=== PATIENT | female | born 1950 | race Caucasian/White ===

== ENCOUNTER 2016-12-14 10:50 | Inpatient (IN) | payer MEDICARE, BC ==
[2016-12-14] MEDS ORDERED: Ondansetron 4 MG/2 ML SDV IV PRN (17:11)
[2016-12-14] MEDS ORDERED: predniSONE 5 MG Tab PO PRN (17:14)
[2016-12-14] MEDS ORDERED: Albuterol/Ipratropium 3.0-0.5 MG/3 ML Neb Soln NEB PRN (17:14)
[2016-12-14] MEDS ORDERED: hydrOXYzine HCl 25 MG Tab PO PRN (17:14)
[2016-12-14] MEDS ORDERED: Lactated Ringers 1,000 ML IV SCH (17:15)
[2016-12-14] MEDS: Pantoprazole 40 MG Vial IVPUSH SCH (17:46)
[2016-12-14] MEDS: Acetaminophen 325 MG Tab PO PRN (17:48)
[2016-12-14] MEDS: Enoxaparin 40 MG/0.4 ML Syringe SUBCUT SCH (18:09)
[2016-12-14] MEDS: Levofloxacin/Dextrose 5%-Water 500 MG in Premix Bag 1 BAG IV SCH (18:36)
[2016-12-14] MEDS: PREDNISOLONE ACETATE 1% EYEBOTH SCH (19:43)
[2016-12-14] MEDS ORDERED: metroNIDAZOLE/Normal Saline 500 MG in Premix Bag 1 BAG IV SCH (20:00)
[2016-12-14] MEDS ORDERED: Theophylline 200 MG Tab.ER PO SCH (20:00)
[2016-12-14] MEDS ORDERED: metFORMIN 500 MG Tab PO SCH (20:00)
[2016-12-14] MEDS ORDERED: Fluticasone Propionate Nasal Spray 16 GM Bottle NASBOTH SCH (20:00)
[2016-12-14] MEDS: OLOPATADINE 0.2% EYEBOTH SCH (20:00)
[2016-12-14] MEDS: Lactated Ringers 1,000 ML IV SCH (21:53)
[2016-12-14] MEDS: Temazepam 15 MG Cap PO PRN (21:55)
[2016-12-14] MEDS: Ibuprofen 200 MG Tab PO PRN (21:55)
[2016-12-15] MEDS: Acetaminophen 325 MG Tab PO PRN ×2 (03:24→23:52)
[2016-12-15] MEDS: Lactated Ringers 1,000 ML IV SCH ×2 (06:02→15:39)
[2016-12-15] MEDS ORDERED: HYDROXYZINE HCL 25 MG PO PRN (07:23)
[2016-12-15] MEDS ORDERED: Loratadine 10 MG Tab PO SCH (08:00)
[2016-12-15] MEDS ORDERED: metroNIDAZOLE/Normal Saline 500 MG in Premix Bag 1 BAG IV SCH (08:00)
[2016-12-15] MEDS ORDERED: THEOPHYLLINE 400 MG PO SCH (08:00)
[2016-12-15] MEDS: OLOPATADINE 0.2% EYEBOTH SCH ×2 (08:23→19:56)
[2016-12-15] MEDS: PREDNISOLONE ACETATE 1% EYEBOTH SCH ×4 (08:23→19:58)
[2016-12-15] MEDS: CETIRIZINE 10 MG PO SCH (08:27)
[2016-12-15] MEDS: METFORMIN 500 MG PO SCH (08:40)
[2016-12-15] MEDS ORDERED: Iopamidol 612 MG/ML 100 ML Bottle IVPUSH ONE (08:48)
[2016-12-15] MEDS: Ibuprofen 200 MG Tab PO PRN ×2 (09:38→16:42)
[2016-12-15] MEDS: Albuterol/Ipratropium 3.0-0.5 MG/3 ML Neb Soln NEB SCH ×3 (12:44→20:41)
[2016-12-15] MEDS: THEOPHYLLINE 400 MG PO SCH ×3 (12:46→19:56)
--- NOTE | 2016-12-15 13:25 | PN ---
DATE: 12/15/2016 S: Emilia was seen yesterday by Garrett for fevers and chills. He initially, I believe, thought she had acute gastroenteritis, as she had a little bit of diarrhea. But in talking to her more today, it sounds like she had about a 2- or 3-day history of rigorous shaking, fevers, chills, and was having some back pain and pleuritic pain. She did not have any overt cough, although, now she is coughing more. Her lab work on admission showed a strikingly elevated white count and CRP. Garrett did do a CT scan of the abdomen and pelvis, which showed a fatty liver and, I believe, an ovarian cyst. She also had interestingly some terminal ileum thickening of undetermined etiology. The upper abdominal scan showed an infiltrate in the right middle lobe of her lung, worrisome possibly for a lesion. CT scan of the chest was done today. It looks like she has a consolidative process there consistent with pneumonia. Radiology, I do not have a formal read yet, and I am waiting on that at this time. She is feeling better. She is not having any hypotension. Blood cultures remain pending. She has not had any diarrhea stools today and, for the most part, I think she feels better. O: GENERAL: Pleasant, alert, and cooperative and in no obvious distress. She is not requiring supplemental O2. HEENT: Grossly benign. NECK: Supple. Veins are flat. No cervical or supraclavicular adenopathy is felt. LUNGS: Sounds are markedly diminished diffusely without any obvious wheezing. Upper airways are more open. She has poor movement in both bases, most notably in the right mid and base with obvious rales and crackles there. ABDOMEN: Appears soft and nontender. I do not appreciate any pain over in the right lower quadrant to palpation. Good bowel sounds are noted. No edema is seen. ASSESSMENT: 1. COMMUNITY-ACQUIRED PNEUMONIA WITH HISTORY OF LIKELY CHRONIC OBSTRUCTIVE PULMONARY DISEASE. 2. TYPE 2 DIABETES. 3. TERMINAL ILEITIS, QUESTIONABLE ETIOLOGY. P: The patient was placed on IV antibiotics. We will continue the Levaquin as prior wait for blood and sputum cultures. I am going to stop her metronidazole at this time. We will continue to follow her blood counts closely. At this time, she looks like she is clinically improving, although, her CRP is elevated and white count is down today on her lab. ANGELITA/KAREN /[id number]
[2016-12-15] MEDS: Pantoprazole 40 MG Vial IVPUSH SCH (17:29)
[2016-12-15] MEDS: Levofloxacin/Dextrose 5%-Water 500 MG in Premix Bag 1 BAG IV SCH (17:29)
[2016-12-15] MEDS: Insulin Aspart 100 Units/ML 3 ML Pen SUBCUT SCH ×2 (17:29→20:41)
[2016-12-15] MEDS: Enoxaparin 40 MG/0.4 ML Syringe SUBCUT SCH (17:30)
[2016-12-15] MEDS: [UNRECOGNIZED DRUG - REMARK] SCH (19:56)
[2016-12-16] MEDS: Ibuprofen 200 MG Tab PO PRN ×2 (02:31→12:07)
[2016-12-16] MEDS: Lactated Ringers 1,000 ML IV SCH ×2 (02:40→15:07)
[2016-12-16] MEDS ORDERED: Albuterol/Ipratropium 3.0-0.5 MG/3 ML Neb Soln NEB ONE (02:52)
[2016-12-16] MEDS: Temazepam 15 MG Cap PO PRN (02:55)
[2016-12-16 07:56] LABS: CHLORIDE,CL 106 mEq/L (98-106); SODIUM,NA 142 mEq/L (136-145)
[2016-12-16] MEDS: THEOPHYLLINE 400 MG PO SCH ×4 (08:10→21:50)
[2016-12-16] MEDS: Insulin Aspart 100 Units/ML 3 ML Pen SUBCUT SCH ×4 (08:10→21:52)
[2016-12-16] MEDS: PREDNISOLONE ACETATE 1% EYEBOTH SCH ×4 (08:11→21:51)
[2016-12-16] MEDS: CETIRIZINE 10 MG PO SCH (08:11)
[2016-12-16] MEDS: OLOPATADINE 0.2% EYEBOTH SCH ×2 (08:12→21:51)
--- NOTE | 2016-12-16 13:58 | PN ---
DATE: 12/16/2016 S: Emilia had a good day. She has not spiked any significant temps. I believe her T-max yesterday was 100.2. Pressures are holding nicely. She is not requiring supplemental O2. She feels less short of breath. Feels she is coughing up quite a bit now, still waiting on blood cultures. Apparently, no sputum culture has been obtained. O: GENERAL: She is pleasant, alert, and cooperative. She appears in no distress. HEENT: Grossly benign. NECK: Neck veins are flat. LUNGS: Sounds still with rales in the right mid and base with a little more expiratory wheezing on that side. Overall, pretty adequate air movement throughout. CARDIAC: Tones are regular. ABDOMEN: Soft. She has no peripheral edema. ASSESSMENT: RIGHT LOWER LOBE PNEUMONIA. P: We advanced her diet. She is having no further diarrhea. White count is down at 12,000. She clinically looks much better. We will start getting her up and ambulating. We will try to get a sputum culture as well today. ANGELITA/KAREN /[id number]
[2016-12-16] MEDS: Acetaminophen 325 MG Tab PO PRN (15:05)
[2016-12-16] MEDS: Albuterol/Ipratropium 3.0-0.5 MG/3 ML Neb Soln NEB SCH ×3 (15:18→21:52)
[2016-12-16] MEDS: Levofloxacin/Dextrose 5%-Water 500 MG in Premix Bag 1 BAG IV SCH (17:54)
[2016-12-16] MEDS: Enoxaparin 40 MG/0.4 ML Syringe SUBCUT SCH (17:55)
[2016-12-16] MEDS: Pantoprazole 40 MG Vial IVPUSH SCH (17:55)
[2016-12-16] MEDS: [UNRECOGNIZED DRUG - REMARK] SCH (21:50)
[2016-12-17] MEDS: Ibuprofen 200 MG Tab PO PRN ×2 (02:42→16:05)
[2016-12-17] MEDS: Temazepam 15 MG Cap PO PRN ×2 (02:47→21:35)
[2016-12-17 07:47] LABS: CHLORIDE,CL 105 mEq/L (98-106); SODIUM,NA 141 mEq/L (136-145)
[2016-12-17] MEDS: THEOPHYLLINE 400 MG PO SCH ×4 (08:32→20:59)
[2016-12-17] MEDS: PREDNISOLONE ACETATE 1% EYEBOTH SCH ×4 (08:33→21:00)
[2016-12-17] MEDS: OLOPATADINE 0.2% EYEBOTH SCH ×2 (08:33→20:59)
[2016-12-17] MEDS: Insulin Aspart 100 Units/ML 3 ML Pen SUBCUT SCH ×4 (08:34→21:00)
[2016-12-17] MEDS: Albuterol/Ipratropium 3.0-0.5 MG/3 ML Neb Soln NEB SCH ×4 (08:35→21:00)
[2016-12-17] MEDS: CETIRIZINE 10 MG PO SCH (08:38)
--- NOTE | 2016-12-17 09:31 | PCM.PN ---
- General Info Date of Service: 12/17/16 Subjective Update: CAP NIDDM Functional Status: Reports: pain controlled, tolerating diet, ambulating, urinating, incentive spirometry. Denies: new symptoms Pain Score: 0 - Review of Systems General: Reports: Weakness, Fatigue, Appetite. Denies: Fever, Malaise, Chills HEENT: Reports: no symptoms Pulmonary: Reports: cough, wheezing. Denies: shortness of breath, pleuritic chest pain, sputum, hemoptysis Cardiovascular: Reports: No Symptoms Gastrointestinal: Reports: No symptoms. Denies: Diarrhea Genitourinary: Reports: no symptoms Musculoskeletal: Reports: no symptoms Skin: Reports: no symptoms Neurological: Reports: No Symptoms Psychiatric: Reports: no symptoms - Patient Data Vitals - most recent: Last Vital Signs Temp 36.8 C 12/17/16 07:51 Pulse 93 12/17/16 07:51 Resp 18 12/17/16 07:51 BP 111/58 L 12/17/16 07:51 Pulse Ox 94 L 12/17/16 07:51 Weight - most recent: 78.471 kg I&O - last 24 hours: Intake & Output 12/16/16 12/17/16 12/17/16 22:59 06:59 14:59 Intake Total 2958 Balance 2958 Lab Results last 24 hrs: Laboratory Results - last 24 hr 12/16/16 12/16/16 12/16/16 Range/Units 11:47 17:18 21:48 WBC (5.0-10.0) 10^3/uL RBC (4.00-5.50) 10^6/uL Hgb (12.0-16.0) g/dL Hct (37.0-47.0) % MCV (82.0-94.0) fL MCH (27.0-32.0) pg MCHC (33.0-38.0) g/dL RDW Coeff of Nikia (11.0-15.0) % Plt Count (150-400) 10^3/uL Neut % (Auto) (35-85) % Lymph % (Auto) (10-55) % Bennett % (Auto) (0-16) % Eos % (Auto) (0-5) % Baso % (Auto) (0-3) % Neut # (Auto) (1.80-7.00) 10^3/uL Lymph # (Auto) (1.00-4.80) 10^3/uL Bennett # (Auto) (0.00-0.80) 10^3/uL Eos # (Auto) (0.00-0.45) 10^3/uL Baso # (Auto) 10^3/uL Sodium (136-145) mEq/L Potassium (3.5-5.0) mEq/L Chloride (98-106) mEq/L Carbon Dioxide (21-32) mmol/L BUN (7-18) mg/dL Creatinine (0.6-1.0) mg/dL Est Cr Clr Drug Dosing mL/min Estimated GFR (MDRD) (>=60) mL/min Glucose (75-99) mg/dL POC Glucose 241 H 235 H 270 H (75-105) mg/dl Calcium (8.4-10.1) mg/dL Magnesium (1.8-2.4) mg/dL C-Reactive Protein (0.2-0.8) mg/dL 12/17/16 12/17/16 12/17/16 Range/Units 07:15 07:15 07:48 WBC 10.9 H (5.0-10.0) 10^3/uL RBC 4.66 (4.00-5.50) 10^6/uL Hgb 13.5 (12.0-16.0) g/dL Hct 40.8 (37.0-47.0) % MCV 87.6 (82.0-94.0) fL MCH 29.0 (27.0-32.0) pg MCHC 33.1 (33.0-38.0) g/dL RDW Coeff of Nikia 13.9 (11.0-15.0) % Plt Count 239 (150-400) 10^3/uL Neut % (Auto) 73.6 (35-85) % Lymph % (Auto) 14.2 (10-55) % Bennett % (Auto) 10.6 (0-16) % Eos % (Auto) 1.4 (0-5) % Baso % (Auto) 0.2 (0-3) % Neut # (Auto) 7.99 H (1.80-7.00) 10^3/uL Lymph # (Auto) 1.54 (1.00-4.80) 10^3/uL Bennett # (Auto) 1.15 H (0.00-0.80) 10^3/uL Eos # (Auto) 0.15 (0.00-0.45) 10^3/uL Baso # (Auto) 0.02 10^3/uL Sodium 141 (136-145) mEq/L Potassium 4.0 (3.5-5.0) mEq/L Chloride 105 (98-106) mEq/L Carbon Dioxide 28 (21-32) mmol/L BUN 5 L (7-18) mg/dL Creatinine 0.8 (0.6-1.0) mg/dL Est Cr Clr Drug Dosing 58.93 mL/min Estimated GFR (MDRD) > 60 (>=60) mL/min Glucose 208 H (75-99) mg/dL POC Glucose 192 H (75-105) mg/dl Calcium 8.8 (8.4-10.1) mg/dL Magnesium 1.9 (1.8-2.4) mg/dL C-Reactive Protein 25.0 H (0.2-0.8) mg/dL Wilian Results last 24 hrs: Microbiology 12/14/16 17:35 Aerobic Blood Culture - Preliminary Blood - Venous - Lab Draw NO GROWTH AFTER 2 DAYS Anaerobic Blood Culture - Preliminary NO GROWTH AFTER 2 DAYS 12/14/16 17:30 Aerobic Blood Culture - Preliminary Blood - Venous NO GROWTH AFTER 2 DAYS Anaerobic Blood Culture - Preliminary NO GROWTH AFTER 2 DAYS Med Orders - Current: Current Medications Acetaminophen (Tylenol) 650 mg PO Q4H PRN PRN Reason: Fever Last Admin: 12/16/16 15:05 Dose: 650 mg Albuterol/Ipratropium (Duoneb 3.0-0.5 Mg/3 Ml) 3 ml NEB QIDRT [facility] Last Admin: 12/17/16 08:35 Dose: 3 ml Enoxaparin Sodium (Lovenox) 40 mg SUBCUT Q24H [facility] Last Admin: 12/16/16 17:55 Dose: 40 mg Hydroxyzine HCl (Atarax) 25 mg PO Q6H PRN PRN Reason: Itching Lactated Ringer's (Ringers, Lactated) 1,000 mls @ 50 mls/hr IV ASDIRECTED [facility] Last Admin: 12/16/16 15:07 Dose: 50 mls/hr Levofloxacin/Dextrose 500 mg/ (Premix) 100 mls @ 100 mls/hr IV Q24H [facility] Last Admin: 12/16/16 17:54 Dose: 100 mls/hr Ibuprofen (Motrin) 600 mg PO Q8H PRN PRN Reason: Fever Last Admin: 12/17/16 02:42 Dose: 600 mg Insulin Aspart (Novolog) 0 unit SUBCUT WITHMEALSANDBED [facility] PRN Reason: Protocol Last Admin: 12/17/16 08:34 Dose: 1 unit Metformin HCl (Glucophage Xr) 500 mg PO BIDMEALS [facility] Last Admin: 12/15/16 08:40 Dose: Not Given Olopatadine [Pataday ] 0.2% Ophth Soln * Own Med 1 drop EYEBOTH BID [facility] Last Admin: 12/17/16 08:33 Dose: 1 drop Ptom-Nasacort (Allergy [place]) 0 each .XX BEDTIME [facility] Last Admin: 12/16/16 21:50 Dose: 1 each Ptom-Theophylline Er (400mg Tab) 1 each PO QID [facility] Last Admin: 12/17/16 08:32 Dose: 1 each Ondansetron HCl (Zofran) 4 mg IV Q4H PRN PRN Reason: Nausea/Vomiting Last Admin: 12/14/16 17:45 Dose: 4 mg Pantoprazole Sodium (Protonix Iv) 40 mg IVPUSH Q24H [facility] Last Admin: 12/16/16 17:55 Dose: 40 mg Ptom-Cetirizine 10mg 1 each PO DAILY [facility] Last Admin: 12/17/16 08:38 Dose: Not Given Prednisolone Acetate (Pred Forte 1% Ophth Susp) 0 ml EYEBOTH QID [facility] Last Admin: 12/17/16 08:33 Dose: 1 drop Temazepam (Restoril) 15 mg PO BEDTIME PRN PRN Reason: Sleep Last Admin: 12/17/16 02:47 Dose: 15 mg Discontinued Medications Albuterol/Ipratropium (Duoneb 3.0-0.5 Mg/3 Ml) 3 ml NEB QIDRT PRN PRN Reason: Shortness of Breath Albuterol/Ipratropium (Duoneb 3.0-0.5 Mg/3 Ml) 3 ml NEB ONETIME ONE Stop: 12/16/16 02:53 Last Admin: 12/16/16 03:08 Dose: 3 ml Fluticasone Propionate (Flonase) 0 gm NASBOTH BEDTIME [facility] Last Admin: 12/14/16 19:43 Dose: 2 sprays Hydroxyzine HCl (Atarax) 25 mg PO DAILY PRN PRN Reason: Itching Lactated Ringer's (Ringers, Lactated) 500 mls @ 500 mls/hr IV ASDIRECTED [facility] Stop: 12/14/16 18:14 Last Admin: 12/14/16 17:49 Dose: 500 mls/hr Metronidazole 500 mg/ Premix 100 mls @ 100 mls/hr IV TID [facility] Last Admin: 12/14/16 19:42 Dose: 100 mls/hr Metronidazole 500 mg/ Premix 100 mls @ 100 mls/hr IV Q8H [facility] Last Admin: 12/15/16 08:19 Dose: 100 mls/hr Magnesium Sulfate/Dextrose 1 (gm/ Premix) 100 mls @ 100 mls/hr IV ONETIME ONE Stop: 12/16/16 11:48 Last Admin: 12/16/16 12:07 Dose: 100 mls/hr Iopamidol (Isovue-300 (61%)) 100 ml IVPUSH ONETIME ONE Stop: 12/15/16 08:49 Last Admin: 12/15/16 09:03 Dose: 100 ml Loratadine (Claritin) 10 mg PO DAILY [facility] Metformin HCl (Glucophage) 500 mg PO BID [facility] Last Admin: 12/14/16 19:27 Dose: Not Given Ptom-Theophylline Er (400mg Tab) 1 each PO TID [facility] Last Admin: 12/15/16 08:22 Dose: 1 each Prednisone (Prednisone) 10 mg PO DAILY PRN PRN Reason: Allergies Theophylline (Theophylline Anhydrous) 400 mg PO TID [facility] Last Admin: 12/14/16 19:44 Dose: Not Given - Exam Quality Assessment: DVT prophylaxis. No: skin breakdown General: alert, oriented HEENT: Pupils equal, Pupils reactive, Mucous membr. moist/pink. No: Scleral icterus Neck: supple, trachea midline, no JVD, no thyromegaly Lungs: Normal respiratory effort, Decreased breath sounds Cardiovascular: Regular Rate, Regular Rhythm. No: No Murmurs, Irregular Rhythm Abdomen: bowel sounds present, soft, no tenderness (Female) Exam: Deferred. No: Normal External Exam Back Exam: Normal Inspection, Full Range of Motion Extremities: no edema, normal pulses, no tenderness/swelling, no calf tenderness Peripheral Pulses: 2+: Carotid (L), Carotid (R), Radial (L), Radial (R) Skin: warm, dry, intact Wound/Incisions: healing well Neurological: no new focal deficit, normal gait Psy/Mental Status: alert, normal affect, normal mood - Problem List Review Problem List Initiated/Reviewed/Updated: Yes - Assessment Assessment:: Progressing well Pneumonia Resolving - Plan Plan:: Continue Current treatment plan. D/C IVF continue IV antibiotics Activity as tolerated to increase strength. F/U in am
[2016-12-17] MEDS: Pantoprazole 40 MG Vial IVPUSH SCH (17:19)
[2016-12-17] MEDS: Levofloxacin/Dextrose 5%-Water 500 MG in Premix Bag 1 BAG IV SCH (17:19)
[2016-12-17] MEDS: Enoxaparin 40 MG/0.4 ML Syringe SUBCUT SCH (17:19)
[2016-12-17] MEDS: [UNRECOGNIZED DRUG - REMARK] SCH (20:59)
[2016-12-17] MEDS: Acetaminophen 325 MG Tab PO PRN (21:34)
[2016-12-18] MEDS: THEOPHYLLINE 400 MG PO SCH ×4 (08:28→20:21)
[2016-12-18] MEDS: METFORMIN 500 MG PO SCH ×2 (08:28→16:29)
[2016-12-18] MEDS: PREDNISOLONE ACETATE 1% EYEBOTH SCH ×4 (08:29→20:21)
[2016-12-18] MEDS: OLOPATADINE 0.2% EYEBOTH SCH ×2 (08:29→20:21)
[2016-12-18] MEDS: Insulin Aspart 100 Units/ML 3 ML Pen SUBCUT SCH ×4 (08:29→21:29)
[2016-12-18] MEDS: Albuterol/Ipratropium 3.0-0.5 MG/3 ML Neb Soln NEB SCH ×4 (08:30→20:21)
[2016-12-18] MEDS: CETIRIZINE 10 MG PO SCH (08:30)
[2016-12-18] MEDS: Acetaminophen 325 MG Tab PO PRN (08:35)
--- NOTE | 2016-12-18 11:18 | PCM.PN ---
[id number] Subjective Update: CAP NIDDM Functional Status: Reports: pain controlled, tolerating diet, ambulating, urinating, incentive spirometry. Denies: new symptoms Pain Score: 0 - Review of Systems General: Reports: Fever (Temp Max 100.6), Weakness, Fatigue, Appetite. Denies: Malaise, Chills, Night Sweats HEENT: Reports: no symptoms Pulmonary: Reports: cough, sputum, wheezing. Denies: hemoptysis (Sputum to lab) Cardiovascular: Reports: No Symptoms. Denies: Palpitations, Dyspnea on Exertion , Edema Gastrointestinal: Reports: Diarrhea. Denies: Abdominal pain, Hematochezia, Melena, Nausea, Vomiting Genitourinary: Reports: no symptoms Musculoskeletal: Reports: no symptoms Skin: Reports: no symptoms Neurological: Reports: No Symptoms Psychiatric: Reports: no symptoms - Patient Data Vitals - most recent: Last Vital Signs Temp 37.3 C 12/18/16 07:55 Pulse 100 12/18/16 07:55 Resp 20 12/18/16 07:55 BP 129/77 12/18/16 07:55 Pulse Ox 95 12/18/16 07:55 Weight - most recent: 78.471 kg I&O - last 24 hours: Intake & Output 12/17/16 12/18/16 12/18/16 22:59 06:59 14:59 Intake Total 400 Balance 400 Lab Results last 24 hrs: Laboratory Results - last 24 hr 12/17/16 12/17/16 12/17/16 Range/Units 11:47 17:10 20:18 WBC (5.0-10.0) 10^3/uL RBC (4.00-5.50) 10^6/uL Hgb (12.0-16.0) g/dL Hct (37.0-47.0) % MCV (82.0-94.0) fL MCH (27.0-32.0) pg MCHC (33.0-38.0) g/dL RDW Coeff of Nikia (11.0-15.0) % Plt Count (150-400) 10^3/uL Neut % (Auto) (35-85) % Lymph % (Auto) (10-55) % Frederick % (Auto) (0-16) % Eos % (Auto) (0-5) % Baso % (Auto) (0-3) % Neut # (Auto) (1.80-7.00) 10^3/uL Lymph # (Auto) (1.00-4.80) 10^3/uL Frederick # (Auto) (0.00-0.80) 10^3/uL Eos # (Auto) (0.00-0.45) 10^3/uL Baso # (Auto) 10^3/uL POC Glucose 281 H 180 H 281 H (75-105) mg/dl C-Reactive Protein (0.2-0.8) mg/dL 12/18/16 12/18/16 12/18/16 Range/Units 07:25 07:30 07:30 WBC 10.1 H (5.0-10.0) 10^3/uL RBC 4.85 (4.00-5.50) 10^6/uL Hgb 14.0 (12.0-16.0) g/dL Hct 41.8 (37.0-47.0) % MCV 86.2 (82.0-94.0) fL MCH 28.9 (27.0-32.0) pg MCHC 33.5 (33.0-38.0) g/dL RDW Coeff of Nikia 14.0 (11.0-15.0) % Plt Count 300 (150-400) 10^3/uL Neut % (Auto) 75.1 (35-85) % Lymph % (Auto) 13.3 (10-55) % Frederick % (Auto) 9.3 (0-16) % Eos % (Auto) 2.1 (0-5) % Baso % (Auto) 0.2 (0-3) % Neut # (Auto) 7.59 H (1.80-7.00) 10^3/uL Lymph # (Auto) 1.34 (1.00-4.80) 10^3/uL Frederick # (Auto) 0.94 H (0.00-0.80) 10^3/uL Eos # (Auto) 0.21 (0.00-0.45) 10^3/uL Baso # (Auto) 0.02 10^3/uL POC Glucose 203 H (75-105) mg/dl C-Reactive Protein 18.5 H (0.2-0.8) mg/dL Wilian Results last 24 hrs: Microbiology 12/14/16 17:35 Aerobic Blood Culture - Preliminary Blood - Venous - Lab Draw NO GROWTH AFTER 3 DAYS Anaerobic Blood Culture - Preliminary NO GROWTH AFTER 3 DAYS 12/14/16 17:30 Aerobic Blood Culture - Preliminary Blood - Venous NO GROWTH AFTER 3 DAYS Anaerobic Blood Culture - Preliminary NO GROWTH AFTER 3 DAYS Med Orders - Current: Current Medications Acetaminophen (Tylenol) 650 mg PO Q4H PRN PRN Reason: Fever Last Admin: 12/18/16 08:35 Dose: 650 mg Albuterol/Ipratropium (Duoneb 3.0-0.5 Mg/3 Ml) 3 ml NEB QIDRT [facility] Last Admin: 12/18/16 08:30 Dose: 3 ml Enoxaparin Sodium (Lovenox) 40 mg SUBCUT Q24H [facility] Last Admin: 12/17/16 17:19 Dose: 40 mg Hydroxyzine HCl (Atarax) 25 mg PO Q6H PRN PRN Reason: Itching Levofloxacin/Dextrose 500 mg/ (Premix) 100 mls @ 100 mls/hr IV Q24H [facility] Last Admin: 12/17/16 17:19 Dose: 100 mls/hr Ibuprofen (Motrin) 600 mg PO Q8H PRN PRN Reason: Fever Last Admin: 12/17/16 16:05 Dose: 600 mg Insulin Aspart (Novolog) 0 unit SUBCUT WITHMEALSANDBED [facility] PRN Reason: Protocol Last Admin: 12/18/16 08:29 Dose: 2 unit Metformin HCl (Glucophage Xr) 500 mg PO BIDMEALS [facility] Last Admin: 12/18/16 08:28 Dose: 500 mg Olopatadine [Pataday ] 0.2% Ophth Soln * Own Med 1 drop EYEBOTH BID [facility] Last Admin: 12/18/16 08:29 Dose: 1 drop Ptom-Nasacort (Allergy [place]) 0 each .XX BEDTIME [facility] Last Admin: 12/17/16 20:59 Dose: 2 each Ptom-Theophylline Er (400mg Tab) 1 each PO QID [facility] Last Admin: 12/18/16 08:28 Dose: 1 each Ondansetron HCl (Zofran) 4 mg IV Q4H PRN PRN Reason: Nausea/Vomiting Last Admin: 12/14/16 17:45 Dose: 4 mg Pantoprazole Sodium (Protonix Iv) 40 mg IVPUSH Q24H [facility] Last Admin: 12/17/16 17:19 Dose: 40 mg Ptom-Cetirizine 10mg 1 each PO DAILY [facility] Last Admin: 12/18/16 08:30 Dose: Not Given Prednisolone Acetate (Pred Forte 1% Ophth Susp) 0 ml EYEBOTH QID [facility] Last Admin: 12/18/16 08:29 Dose: 1 drop Temazepam (Restoril) 15 mg PO BEDTIME PRN PRN Reason: Sleep Last Admin: 12/17/16 21:35 Dose: 15 mg Discontinued Medications Albuterol/Ipratropium (Duoneb 3.0-0.5 Mg/3 Ml) 3 ml NEB QIDRT PRN PRN Reason: Shortness of Breath Albuterol/Ipratropium (Duoneb 3.0-0.5 Mg/3 Ml) 3 ml NEB ONETIME ONE Stop: 12/16/16 02:53 Last Admin: 12/16/16 03:08 Dose: 3 ml Fluticasone Propionate (Flonase) 0 gm NASBOTH BEDTIME [facility] Last Admin: 12/14/16 19:43 Dose: 2 sprays Hydroxyzine HCl (Atarax) 25 mg PO DAILY PRN PRN Reason: Itching Lactated Ringer's (Ringers, Lactated) 500 mls @ 500 mls/hr IV ASDIRECTED [facility] Stop: 12/14/16 18:14 Last Admin: 12/14/16 17:49 Dose: 500 mls/hr Lactated Ringer's (Ringers, Lactated) 1,000 mls @ 50 mls/hr IV ASDIRECTED [facility] Last Admin: 12/16/16 15:07 Dose: 50 mls/hr Metronidazole 500 mg/ Premix 100 mls @ 100 mls/hr IV TID [facility] Last Admin: 12/14/16 19:42 Dose: 100 mls/hr Metronidazole 500 mg/ Premix 100 mls @ 100 mls/hr IV Q8H [facility] Last Admin: 12/15/16 08:19 Dose: 100 mls/hr Magnesium Sulfate/Dextrose 1 (gm/ Premix) 100 mls @ 100 mls/hr IV ONETIME ONE Stop: 12/16/16 11:48 Last Admin: 12/16/16 12:07 Dose: 100 mls/hr Iopamidol (Isovue-300 (61%)) 100 ml IVPUSH ONETIME ONE Stop: 12/15/16 08:49 Last Admin: 12/15/16 09:03 Dose: 100 ml Loratadine (Claritin) 10 mg PO DAILY [facility] Metformin HCl (Glucophage) 500 mg PO BID [facility] Last Admin: 12/14/16 19:27 Dose: Not Given Ptom-Theophylline Er (400mg Tab) 1 each PO TID [facility] Last Admin: 12/15/16 08:22 Dose: 1 each Prednisone (Prednisone) 10 mg PO DAILY PRN PRN Reason: Allergies Theophylline (Theophylline Anhydrous) 400 mg PO TID [facility] Last Admin: 12/14/16 19:44 Dose: Not Given - Exam Quality Assessment: DVT prophylaxis. No: skin breakdown General: alert, oriented, cooperative, no acute distress HEENT: Pupils equal, Mucous membr. moist/pink. No: Scleral icterus Neck: supple, trachea midline, no JVD Lungs: Normal respiratory effort (Frequent loose productive cough-Affirms tobacco use sparingly), Crackles, Rales Cardiovascular: Regular Rate, Regular Rhythm Abdomen: bowel sounds present, soft (Female) Exam: Deferred Back Exam: Normal Inspection, Full Range of Motion Extremities: no edema, normal pulses, no tenderness/swelling, no calf tenderness Peripheral Pulses: 2+: Radial (L), Radial (R), Dorsalis Pedis (L), Dorsalis Pedis (R) Skin: warm, dry, intact Wound/Incisions: dressing dry and intact (IV patent) Neurological: no new focal deficit, normal gait Psy/Mental Status: alert, normal affect, normal mood - Problem List Review Problem List Initiated/Reviewed/Updated: Yes - My Orders Last 24 Hours: My Active Orders 12/19/16 05:11 CBC WITH AUTO DIFF [HEME] AM - Assessment Assessment:: Progressing well Pneumonia Resolving Tobacco Use---Cessation advised - Plan Plan:: Continue Current treatment plan. D/C IVF continue IV antibiotics Activity as tolerated to increase strength. 12/18/2016 Continue same Ambulate increase strength. Educate smoking cessation F/U in am Dr. Hanks for evaluation and possible discharge.
[2016-12-18] MEDS: Enoxaparin 40 MG/0.4 ML Syringe SUBCUT SCH (17:37)
[2016-12-18] MEDS: Levofloxacin/Dextrose 5%-Water 500 MG in Premix Bag 1 BAG IV SCH (17:37)
[2016-12-18] MEDS: Pantoprazole 40 MG Vial IVPUSH SCH (17:37)
[2016-12-18] MEDS: [UNRECOGNIZED DRUG - REMARK] SCH (20:21)
[2016-12-19] MEDS: THEOPHYLLINE 400 MG PO SCH ×4 (08:43→20:35)
[2016-12-19] MEDS: Insulin Aspart 100 Units/ML 3 ML Pen SUBCUT SCH ×4 (08:45→20:36)
[2016-12-19] MEDS: OLOPATADINE 0.2% EYEBOTH SCH ×2 (08:46→20:36)
[2016-12-19] MEDS: CETIRIZINE 10 MG PO SCH (08:46)
[2016-12-19] MEDS: PREDNISOLONE ACETATE 1% EYEBOTH SCH ×4 (08:46→20:36)
[2016-12-19] MEDS: Albuterol/Ipratropium 3.0-0.5 MG/3 ML Neb Soln NEB SCH ×4 (08:47→20:36)
[2016-12-19] MEDS: METFORMIN 500 MG PO SCH (09:46)
--- NOTE | 2016-12-19 12:49 | PN ---
DATE: 12/19/2016 S: Emilia is a 66-year-old female who was admitted to the hospital on 12/14 secondary to acute gastroenteritis and pneumonia. She has been on IV antibiotics during her stay, has not had any episodes of diarrhea up until yesterday when she did take her metformin again, which did cause her some GI upset and diarrhea. She feels that her diarrhea may be secondary to the metformin itself. She did have a fever yesterday, however, today has not had any fevers at this point in time. Appetite is improving. She denies any other concerns presently. She would like to get off the metformin however. O: VITAL SIGNS: Blood pressure is 105/62, O2 is 94% to 96% on room air, respiratory rate is 16, and temp of 97.8. GENERAL: Pleasant, cooperative female. She is sitting comfortably. Does not appear to be in any acute distress. HEENT: Grossly unremarkable. LUNGS: Clear to auscultation. I really did not hear any adventitious sounds, some mild crackles are noted in the bases. CARDIOVASCULAR: Regular rate and rhythm. Normal S1, S2. ABDOMEN: Soft. Bowel sounds are present. Normoactive. No organomegaly. No guarding or rigidity. No pedal edema is noted. ASSESSMENT: 1. PNEUMONIA, RESOLVING. 2. DIARRHEA/QUESTIONABLE METFORMIN INTOLERANCE. P: We will discontinue her metformin today. We will start her on glipizide 2.5 mg daily. We will also continue with IV antibiotics up until tomorrow. We will plan for possible discharge tomorrow. I advised increased ambulation for strengthening. We did discuss smoking cessation today as well. I again we will look at her tomorrow for a possible discharge. SARAHI/KAREN /[id number]
[2016-12-19] MEDS: glipiZIDE 2.5 MG Tab.ER PO SCH (13:50)
[2016-12-19] MEDS: Enoxaparin 40 MG/0.4 ML Syringe SUBCUT SCH (17:50)
[2016-12-19] MEDS: Pantoprazole 40 MG Vial IVPUSH SCH (17:53)
[2016-12-19] MEDS: Levofloxacin/Dextrose 5%-Water 500 MG in Premix Bag 1 BAG IV SCH (18:01)
[2016-12-19] MEDS: [UNRECOGNIZED DRUG - REMARK] SCH (20:35)
[2016-12-20] MEDS: glipiZIDE 2.5 MG Tab.ER PO SCH (07:42)
[2016-12-20] MEDS: OLOPATADINE 0.2% EYEBOTH SCH (07:43)
[2016-12-20] MEDS: THEOPHYLLINE 400 MG PO SCH ×2 (07:43→12:08)
[2016-12-20] MEDS: PREDNISOLONE ACETATE 1% EYEBOTH SCH ×2 (07:43→12:08)
[2016-12-20] MEDS: CETIRIZINE 10 MG PO SCH (07:44)
[2016-12-20] MEDS: Insulin Aspart 100 Units/ML 3 ML Pen SUBCUT SCH ×2 (07:45→12:08)
[2016-12-20] MEDS: Albuterol/Ipratropium 3.0-0.5 MG/3 ML Neb Soln NEB SCH ×2 (09:29→13:04)
[2016-12-20 10:54] LABS: CHLORIDE,CL 104 mEq/L (98-106); SODIUM,NA 142 mEq/L (136-145)
[2016-12-20 12:11] VITALS: BP 108/68
[2016-12-20] MEDS ORDERED: Levofloxacin/Dextrose 5%-Water 500 MG in Premix Bag 1 BAG IV ONE (13:43)
--- NOTE | 2016-12-21 14:07 | DISCH ---
HISTORY OF PRESENT ILLNESS: Emilia is a 66-year-old female, who was admitted on the secondary to some vomiting, diarrhea, and cough. Initially, I thought she had a gastroenteritis. She did have a high CBC with CRP. She was admitted to the hospital on which right lower lobe pneumonia was found as well. LABORATORY DATA: On admission, white blood cell count 21,300 with a left shift. Her CRP was 26.3, that did elevate up to 35.9 on the . It has gradually came down and is currently 4.6. White blood count is 10,300 as well with no further left shift. CT of the abdomen, chest, and pelvis did confirm right lower lobe pneumonia. There was some inflammation at cecum as well. HOSPITAL COURSE: Emilia has gradually improved on a day-to-day basis. It was determined that she did not have a tolerance to metformin, which she did feel was causing some of the diarrhea. Her metformin has been held and no further diarrhea was noted. We did switch her to glipizide in the hospital, which she has been tolerating appropriately. She has been getting IV antibiotics in regard to Levaquin in regard to right lower lobe pneumonia. She does state that she has been afebrile now for the last 24 hours. It has gotten a lot better and does feel that she is ready to go home at this point in time. PHYSICAL EXAMINATION: VITAL SIGNS: Today vital signs; blood pressure is 108/68, respiratory rate 18, O2 is 97%, pulse is 78, temperature of 98.7. GENERAL: Pleasant cooperative female. She is alert and oriented, does not appear to be in any acute distress, not acutely ill. HEENT: Grossly unremarkable. LUNGS: Clear to auscultation. I really do not hear any adventitious sounds, whatsoever no diminished breath sounds. CARDIAC: Regular rate and rhythm. No murmurs, gallops, or rubs noted. ABDOMEN: Soft. Bowel sounds present. No organomegaly. No guarding or rigidity. EXTREMITIES: No pedal edema is noted. Pedal pulses are present equal bilaterally. DISCHARGE DIAGNOSIS: 1. RIGHT LOWER LOBE PNEUMONIA. 2. ACUTE DIARRHEA, RESOLVED. PLAN: The patient will be sent home on DuoNeb along with nebulizer machine. We will also start her and keep her on Levaquin 500 mg daily for the next 5 days. We will have followup appointment with Dr. Deepak Hanks, next week, when she will have a CBC, BMP, and CRP prior to seeing him in clinic. We will continue with the glipizide and we will increase it from 2.5 mg XL to 5 mg XL daily. She will see Dr. Hanks again next week. DISPOSITION: Home with referral to Dr. Hanks next week. SARAHI/KAREN /[id number]
== END 2016-12-20 16:00 | disposition home or self-care (01) | DRG 190 ==
LOC: CC.MS 10:50 → UNDOADMOB 16:38 → CC.MS 16:38 → OBSVTOIN 12-16 10:50
PROVIDERS: ADMIT Physician Assistant Medical; ATTEND Family Medicine
DX: R11.2 Nausea with vomiting, unspecified (principal); J44.0 Chronic obstructive pulmonary disease with (acute) lower respiratory infection; J18.9 Pneumonia, unspecified organism; R19.7 Diarrhea, unspecified; T38.3X5A Adverse effect of insulin and oral hypoglycemic [antidiabetic] drugs, initial encounter; E11.9 Type 2 diabetes mellitus without complications; Z79.84 Long term (current) use of oral hypoglycemic drugs; E78.00 Pure hypercholesterolemia, unspecified; F17.210 Nicotine dependence, cigarettes, uncomplicated; Z85.828 Personal history of other malignant neoplasm of skin
CPT/HCPCS: 36415 ×3; 71260; 74177; 80048 ×2; 80053; 81001; 82150; 82962 ×2; 83735; 85025 ×3; 86140 ×3; 87040 ×2; A9270 ×18; C9113 ×2; J1650 ×2; J1815; J1956 ×2; J2405; J7120 ×5; Q9967 ×3; 74160; 94640; 94640-76; 94667; 94668; 96361; 96365; 96366; 96367; 96372; 96375; 96376; 99220; 99226; G0378; J3475

== ENCOUNTER → 2023-03-31 | Day surgery (SDC) | payer MEDICARE, BC ==
[~2023-03-31] MED LIST: Ketamine 200 MG/20 ML MDV ONE; Lactated Ringers 1,000 ML IV SCH; Midazolam 1 MG/ML 2 ML SDV ONE; Propofol 200 MG/20 ML SDV ONE; ePHEDrine 50 MG/ML SDV ONE
[2023-03-31 11:36] VITALS: BP 120/45; PULSE 73
== END ==
LOC: CC.SDS 07:13
PROVIDERS: ATTEND Family Medicine
DX: Z12.11 Encounter for screening for malignant neoplasm of colon (principal); D12.2 Benign neoplasm of ascending colon; D12.0 Benign neoplasm of cecum; D12.3 Benign neoplasm of transverse colon; D12.5 Benign neoplasm of sigmoid colon; K62.0 Anal polyp; K57.30 Diverticulosis of large intestine without perforation or abscess without bleeding; E11.9 Type 2 diabetes mellitus without complications; J44.9 Chronic obstructive pulmonary disease, unspecified; R63.4 Abnormal weight loss; J30.9 Allergic rhinitis, unspecified; E78.00 Pure hypercholesterolemia, unspecified; Z87.891 Personal history of nicotine dependence; Z88.0 Allergy status to penicillin; Z88.2 Allergy status to sulfonamides; Z88.8 Allergy status to other drugs, medicaments and biological substances; Z79.84 Long term (current) use of oral hypoglycemic drugs; Z79.899 Other long term (current) drug therapy
CPT/HCPCS: 00811; 88305; 99100; J2250; J2704; J3490; J7120